=== PATIENT | female | born 1990 | race Caucasian/White ===

== ENCOUNTER 2024-10-19 14:05 | Outpatient (REF) | payer OTHER, SELFPAY | END 2024-10-19 14:06 | disposition home or self-care (01) | LOC: HO.LAB 14:05 | PROVIDERS: Visit Provider Physician Assistant | DX: R05.9 Cough, unspecified (principal); L20.9 Atopic dermatitis, unspecified; J18.9 Pneumonia, unspecified organism; R09.89 Other specified symptoms and signs involving the circulatory and respiratory systems | CPT/HCPCS: 0241U; 71046; 99202 ==

== ENCOUNTER 2024-10-19 14:05 | Outpatient (AMB) | payer OTHER, SELFPAY ==
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
[2024-10-19 15:15] VITALS: BP 120/78; PULSE 80; TEMP 36.6; O2SAT 98; BMI 31.7
== END 2024-10-19 15:53 | disposition home or self-care (01) ==
PROVIDERS: Visit Provider Physician Assistant
DX: L20.9 Atopic dermatitis, unspecified (principal); J18.9 Pneumonia, unspecified organism

== ENCOUNTER 2024-10-19 15:40 | Outpatient (REF) | payer OTHER, SELFPAY ==
--- NOTE | ~2024-10-19 | XR_ITS ---
CLINICAL HISTORY: R05.9 - Cough, unspecified Two views of the chest. COMPARISON: None FINDINGS: Normal heart and mediastinal contours. No consolidation. No pleural effusion or pneumothorax. Mild rightward curvature of the midthoracic spine. No fracture identified. IMPRESSION: 1. No consolidation. This document has been electronically signed by: King Silva MD on 10/19/2024 16:29:20
[2024-10-20 11:11] LABS: Influenza A PCR NEGATIVE (Negative); Influenza B PCR NEGATIVE (Negative); Resp Syncy Virus RNA Qual PCR NEGATIVE (Negative); SARS COV2 PCR INHOUSE POSITIVE (Negative)
== END 2024-10-19 15:41 | disposition home or self-care (01) ==
LOC: HO.HMGCX 15:40
PROVIDERS: Visit Provider Physician Assistant
DX: R05.9 Cough, unspecified (principal); R09.89 Other specified symptoms and signs involving the circulatory and respiratory systems
CPT/HCPCS: 0241U; 71046

== ENCOUNTER → 2024-10-19 15:44 | Outpatient (BNV) | payer OTHER, SELFPAY | PROVIDERS: Visit Provider Radiology Diagnostic Radiology | DX: R07.9 Chest pain, unspecified (principal) | CPT/HCPCS: 71046 ==